=== PATIENT | female | born 1990 | race African-American/Black ===

== ENCOUNTER 2016-05-15 14:37 | Emergency (ER) | payer OTHER ==
[~2016-05-15] VITALS: Ht 144.8 cm; Wt 82.1 kg
[~2016-05-15 14:37] MED LIST: ALBUTEROL SULF8.5 GM IH; BACTRIM,SEPT1 TABLET PO; BENADRYL25 MG PO; BENTYL10 MG PO; CHROMAGEN,1 CAPSULE PO; FLAGYL500 MG PO; FLEXERIL10 MG PO; IBUPROFEN800 MG PO; KEFLEX500 MG PO; LAMICTAL25 MG PO; LATUDA20 MG PO; MACROBID100 MG PO; MACRODANTIN100 MG PO; MIRALAX17 GM PO; MOTRIN600 MG PO; MOTRIN800 MG PO; NAPROSYN500 MG PO; PEPCID20 MG PO; PHENAZOPYRIDIN200 MG PO; PREDNISONE20 MG PO; PRENATAL PLUS1 EAC3 PO; SPRINTEC1 EACH PO; TAMIFLU75 MG PO; ULTRAM50 MG PO; VALTREX1000 MG PO; VENTOLIN HFA18 GM IH; WELLBUTRIN SR150 MG PO; ZANTAC150 MG PO; ZOFRAN ODT4 MG PO; ZOFRAN ODT8 MG PO; ZOFRAN8 MG PO
[2016-05-15 14:46] VITALS: BP 113/62
== END 2016-05-15 15:46 | disposition left against medical advice (07) ==
LOC: EME 14:37
DX: Z00.8 Encounter for other general examination (principal); Z53.21 Procedure and treatment not carried out due to patient leaving prior to being seen by health care provider

== ENCOUNTER 2016-05-30 03:51 | Emergency (ER) | payer OTHER ==
[~2016-05-30] VITALS: Ht 144.8 cm; Wt 98.3 kg
[2016-05-30 04:29] LABS: HEMATOCRIT 33.8 % (36.0-46.0); MCH 28.5 PG (29.0-34.0); MCHC 32.8 G/DL (30.0-36.0); MCV 86.7 FL (83-99); MEAN PLAT.VOLUME 10.5 uM^3 (9.5-12.4); PLATELET COUNT 315 K/uL (156-360); RBC DIS.WIDTH-CV 14.2 % (11.8-14.6); RBC DIS.WIDTH-SD 43.7 % (39-53); WHITE BLOOD COUNT 7.9 K/uL (4.1-10.2)
[2016-05-30 05:15] LABS: CHLORIDE 107 mEq/L (99-109); POTASSIUM 3.1 mEq/L (3.7-5.4); SODIUM 138 mEq/L (136-147)
[2016-05-30 05:16] LABS: GLUCOSE 101 mg/dL (70-99)
[2016-05-30 05:18] LABS: ANION GAP 7 MEQ/L (2-14)
[2016-05-30 05:20] LABS: GFR ESTIMATE (CALCULATED) > 59 mL/min/
[2016-05-30 05:21] LABS: UREA NITROGEN (BUN) 8 mg/dL (9-23)
[2016-05-30] MEDS ORDERED: NAPROSYN500 MG PO (06:21)
[2016-05-30 06:37] VITALS: BP 108/52
== END 2016-05-30 06:37 | disposition home or self-care (01) ==
LOC: EME → EDBD 03:51 → EME 06:37
PROVIDERS: Emergency Medicine
DX: O20.0 Threatened abortion (principal); O99.281 Endocrine, nutritional and metabolic diseases complicating pregnancy, first trimester; E87.6 Hypokalemia; O99.331 Smoking (tobacco) complicating pregnancy, first trimester; Z3A.01 Less than 8 weeks gestation of pregnancy; F17.200 Nicotine dependence, unspecified, uncomplicated; Z95.1 Presence of aortocoronary bypass graft
CPT/HCPCS: 76801; 80048; 81003; 84702; 85027; 86850; 86900; 86901; 99281; 99284

== ENCOUNTER 2016-06-21 23:22 | Emergency (ER) | payer OTHER ==
[~2016-06-21] VITALS: Ht 144.8 cm; Wt 83.9 kg
[2016-06-22 00:20] LABS: HEMATOCRIT 37.9 % (36.0-46.0); MCH 28.9 PG (29.0-34.0); MCHC 33.2 G/DL (30.0-36.0); MCV 86.9 FL (83-99); MEAN PLAT.VOLUME 10.3 uM^3 (9.5-12.4); PLATELET COUNT 322 K/uL (156-360); RBC DIS.WIDTH-CV 14.8 % (11.8-14.6); RBC DIS.WIDTH-SD 46.3 % (39-53); RED BLOOD COUNT 4.36 M/uL (3.80-5.20); WHITE BLOOD COUNT 6.3 K/uL (4.1-10.2)
[2016-06-22 00:21] LABS: INFLUENZA A VIRAL ANTIGEN NEGATIVE; INFLUENZA B VIRAL ANTIGEN NEGATIVE
[2016-06-22 00:31] LABS: CHLORIDE 107 mEq/L (99-109); POTASSIUM 3.6 mEq/L (3.7-5.4); SODIUM 143 mEq/L (136-147)
[2016-06-22 00:34] LABS: GLUCOSE 94 mg/dL (70-99)
[2016-06-22 00:35] LABS: ANION GAP 9 MEQ/L (2-14); TOTAL BILIRUBIN 0.3 mg/dL (0.0-1.0)
[2016-06-22 00:37] LABS: ALKALINE PHOSPHATASE 60 IU/L (3-129); GFR ESTIMATE (CALCULATED) > 59 mL/min/
[2016-06-22 00:38] LABS: UREA NITROGEN (BUN) 10 mg/dL (9-23)
[2016-06-22 00:50] LABS: QUANTITATIVE HCG 894.5 MIU/ML
[2016-06-22 01:23] LABS: HEMATOLOGY COMMENT 1 REV
[2016-06-22 01:24] LABS: BASOPHIL COUNT 0.1 K/uL (0-0.1); EOSINOPHIL (%) 2.1 % (0-5); EOSINOPHIL COUNT 0.1 K/uL (0-0.3); IMMATURE GRANULOCYTE (%) 0.2 % (0.0-0.7); IMMATURE GRANULOCYTE COUNT 0.1 K/uL; LYMPHOCYTE COUNT 2.8 K/uL (1.0-2.8); MONOCYTE (%) 16.9 % (3-12); MONOCYTE COUNT 1.1 K/uL (0-0.8); NEUTROPHIL (%) 34.6 % (45-76); NEUTROPHIL COUNT 2.2 K/uL (1.8-6.4)
[2016-06-22 02:13] LABS: ADD MIUA? YES; BILIRUBIN NEGATIVE; BLOOD LARGE; COLOR YELLOW ((YELLOW)); GLUCOSE (STRIP) NEGATIVE; KETONES 5; LEUKOCYTES NEGATIVE; NITRITE NEGATIVE; PROTEIN (STRIP) 30; SPECIFIC GRAVITY 1.024 (1.000-1.030); UROBILINOGEN 0.2 MG/DL (0.2-1.0)
[2016-06-22 02:28] LABS: BACTERIA RARE /HPF; EPITHELIAL CELLS 1+ /HPF; MUCUS TRACE /LPF; RED BLOOD CELLS TNTC /HPF (0-5); UCUL ADDED? NO; WHITE BLOOD CELLS 0-5 /HPF (0-5)
[2016-06-22 03:00] VITALS: BP 108/54
== END 2016-06-22 03:07 | disposition home or self-care (01) ==
LOC: EME 23:22
PROVIDERS: Emergency Medicine
DX: M79.1 Myalgia (principal); J06.9 Acute upper respiratory infection, unspecified; J45.909 Unspecified asthma, uncomplicated; Z95.1 Presence of aortocoronary bypass graft; F17.200 Nicotine dependence, unspecified, uncomplicated
CPT/HCPCS: 76801; 80053; 81003; 84702; 85025; 87502; 99281; 99284

== ENCOUNTER 2016-07-07 19:40 | Emergency (ER) | payer OTHER ==
[~2016-07-07] VITALS: Ht 147.3 cm; Wt 82.7 kg
[2016-07-07 23:25] VITALS: BP 112/70
== END 2016-07-07 23:26 | disposition home or self-care (01) ==
LOC: EME 19:40
DX: S05.12XA Contusion of eyeball and orbital tissues, left eye, initial encounter (principal); S01.511A Laceration without foreign body of lip, initial encounter; S02.5XXA Fracture of tooth (traumatic), initial encounter for closed fracture; Y04.8XXA Assault by other bodily force, initial encounter; F17.200 Nicotine dependence, unspecified, uncomplicated
CPT/HCPCS: 70450; 70486; 99281; 99283

== ENCOUNTER 2016-07-11 22:46 | Emergency (ER) | payer OTHER ==
[~2016-07-11] VITALS: Ht 144.8 cm; Wt 83.2 kg
[2016-07-12 00:28] LABS: ADD MIUA? YES; BILIRUBIN NEGATIVE; BLOOD LARGE; COLOR YELLOW ((YELLOW)); GLUCOSE (STRIP) NEGATIVE; KETONES NEGATIVE; LEUKOCYTES LARGE; NITRITE NEGATIVE; PROTEIN (STRIP) NEGATIVE; SPECIFIC GRAVITY 1.006 (1.000-1.030); UROBILINOGEN 0.2 MG/DL (0.2-1.0)
[2016-07-12] MEDS ORDERED: TRAMADOL HCL50 MG PO (00:31)
[2016-07-12 00:32] LABS: BACTERIA RARE /HPF; EPITHELIAL CELLS 1+ /HPF; MUCUS TRACE /LPF; UCUL ADDED? YES; UNCLASSIFIED CRYSTALS 2+ /HPF; WHITE BLOOD CELLS TNTC /HPF (0-5)
[2016-07-12 00:33] LABS: INTERNAL CONTROL VALID? YES
[2016-07-12] MEDS ORDERED: MACROBID100 MG PO (02:09)
[2016-07-12 02:18] VITALS: BP 138/71
== END 2016-07-12 02:22 | disposition home or self-care (01) ==
LOC: EME 22:46
PROVIDERS: Emergency Medicine
PROC: 3E0X3BZ Introduction of Anesthetic Agent into Cranial Nerves, Percutaneous Approach (ICD-10-PCS; principal; 2016-07-11)
DX: O99.89 Other specified diseases and conditions complicating pregnancy, childbirth and the puerperium (principal); K08.89 Other specified disorders of teeth and supporting structures; H11.32 Conjunctival hemorrhage, left eye; O9A.211 Injury, poisoning and certain other consequences of external causes complicating pregnancy, first trimester; S02.5XXD Fracture of tooth (traumatic), subsequent encounter for fracture with routine healing; S05.12XD Contusion of eyeball and orbital tissues, left eye, subsequent encounter; S01.511D Laceration without foreign body of lip, subsequent encounter; Y09 Assault by unspecified means; O23.11 Infections of bladder in pregnancy, first trimester; N30.01 Acute cystitis with hematuria; O99.331 Smoking (tobacco) complicating pregnancy, first trimester; F17.200 Nicotine dependence, unspecified, uncomplicated
CPT/HCPCS: 81003; 84702; 84703; 87077; 87086; 87186; 99281; 99284

== ENCOUNTER 2016-11-06 21:54 | Emergency (ER) | payer OTHER ==
[~2016-11-06] VITALS: Ht 144.8 cm; Wt 79.2 kg
[~2016-11-06 21:54] MED LIST changes: +TRAMADOL HCL50 MG PO
[2016-11-06 22:10] VITALS: BP 103/78
[2016-11-06 22:59] LABS: ADD MIUA? YES; BILIRUBIN NEGATIVE; BLOOD SMALL; COLOR YELLOW ((YELLOW)); GLUCOSE (STRIP) NEGATIVE; KETONES NEGATIVE; LEUKOCYTES MODERATE; NITRITE NEGATIVE; PROTEIN (STRIP) 100; SPECIFIC GRAVITY 1.034 (1.000-1.030)
[2016-11-06 23:05] LABS: HEMATOCRIT 36.5 % (36.0-46.0); MCH 29.1 PG (29.0-34.0); MCHC 33.2 G/DL (30.0-36.0); MCV 87.7 FL (83-99); MEAN PLAT.VOLUME 10.4 uM^3 (9.5-12.4); PLATELET COUNT 329 K/uL (156-360); RBC DIS.WIDTH-CV 14.6 % (11.8-14.6); RBC DIS.WIDTH-SD 47.3 % (39-53); RED BLOOD COUNT 4.16 M/uL (3.80-5.20); WHITE BLOOD COUNT 9.7 K/uL (4.1-10.2)
[2016-11-06 23:07] LABS: BACTERIA RARE /HPF; EPITHELIAL CELLS 1+ /HPF; MUCUS TRACE /LPF; UCUL ADDED? YES; WHITE BLOOD CELLS TNTC /HPF (0-5)
[2016-11-06 23:16] LABS: CHLORIDE 105 mEq/L (99-109); POTASSIUM 3.6 mEq/L (3.7-5.4); SODIUM 140 mEq/L (136-147)
[2016-11-06 23:19] LABS: GLUCOSE 94 mg/dL (70-99)
[2016-11-06 23:20] LABS: ANION GAP 11 MEQ/L (2-14)
[2016-11-06 23:21] LABS: TOTAL BILIRUBIN 0.3 mg/dL (0.0-1.0)
[2016-11-06 23:22] LABS: ALKALINE PHOSPHATASE 67 IU/L (3-129); GFR ESTIMATE (CALCULATED) > 59 mL/min/
[2016-11-06 23:23] LABS: UREA NITROGEN (BUN) 21 mg/dL (9-23)
[2016-11-06 23:26] LABS: LIPASE 26 U/L (1.0-51.0)
[2016-11-06 23:33] LABS: QUANTITATIVE HCG < 4.0 MIU/ML
[2016-11-07] MEDS ORDERED: ZOFRAN8 MG PO (00:46)
[2016-11-07] MEDS ORDERED: MACRODANTIN100 MG PO (00:47)
== END 2016-11-07 00:25 | disposition left against medical advice (07) ==
LOC: EME 21:54
DX: N30.01 Acute cystitis with hematuria (principal); R11.2 Nausea with vomiting, unspecified; Z95.1 Presence of aortocoronary bypass graft; F17.200 Nicotine dependence, unspecified, uncomplicated
CPT/HCPCS: 80053; 81003; 83690; 84702; 85027; 87086

== ENCOUNTER 2017-10-14 15:41 | Emergency (ER) | payer OTHER ==
[~2017-10-14] VITALS: Ht 144.8 cm; Wt 95.7 kg
[2017-10-14 17:19] LABS: APPEARANCE SL.HAZY ((CLEAR)); BILIRUBIN NEGATIVE; BLOOD SMALL; COLOR YELLOW ((YELLOW)); GLUCOSE (STRIP) NEGATIVE; KETONES NEGATIVE; LEUKOCYTES NEGATIVE; NITRITE NEGATIVE; PROTEIN (STRIP) NEGATIVE
[2017-10-14 17:24] LABS: BACTERIA RARE /HPF; EPITHELIAL CELLS 1+ /HPF; MUCUS TRACE /LPF; UCUL ADDED? NO; WHITE BLOOD CELLS 0-5 /HPF (0-5)
[2017-10-14 18:18] VITALS: BP 95/66
== END 2017-10-14 18:27 | disposition home or self-care (01) ==
LOC: EME 15:41
PROVIDERS: Emergency Medicine
DX: S86.891A Other injury of other muscle(s) and tendon(s) at lower leg level, right leg, initial encounter (principal); S86.892A Other injury of other muscle(s) and tendon(s) at lower leg level, left leg, initial encounter; X58.XXXA Exposure to other specified factors, initial encounter; R30.0 Dysuria; R11.10 Vomiting, unspecified; N89.8 Other specified noninflammatory disorders of vagina; F17.200 Nicotine dependence, unspecified, uncomplicated
CPT/HCPCS: 81003; 81025; 99281; 99284

== ENCOUNTER 2017-10-27 12:10 | Inpatient (IN) | payer OTHER ==
[~2017-10-27] VITALS: Ht 144.8 cm; Wt 90.1 kg
[2017-10-27 13:49] LABS: HEMATOCRIT 33.5 % (36.0-46.0); HEMOGLOBIN 11.2 G/DL (11.9-15.5); MCH 29.1 PG (29.0-34.0); MCHC 33.4 G/DL (30.0-36.0); PLATELET COUNT 233 K/uL (156-360); RBC DIS.WIDTH-CV 14.6 % (11.8-14.6); RBC DIS.WIDTH-SD 46.7 % (39-53); RED BLOOD COUNT 3.85 M/uL (3.80-5.20); WHITE BLOOD COUNT 5.3 K/uL (4.1-10.2)
[2017-10-27 13:58] LABS: BILIRUBIN NEGATIVE; BLOOD NEGATIVE; COLOR YELLOW ((YELLOW)); GLUCOSE (STRIP) NEGATIVE; KETONES NEGATIVE; LEUKOCYTES NEGATIVE; NITRITE NEGATIVE; PROTEIN (STRIP) NEGATIVE; SPECIFIC GRAVITY 1.009 (1.000-1.030); UROBILINOGEN 0.2 MG/DL (0.2-1.0)
[2017-10-27 13:59] LABS: APPEARANCE CLEAR ((CLEAR)); UCUL ADDED? NO
[2017-10-27 14:06] LABS: AMPHETAMINE NEGATIVE (500 ng/mL); BARBITURATES NEGATIVE (200 ng/mL); BENZODIAZEPINES NEGATIVE (150 ng/mL); BUPRENORPHINE NEGATIVE (10 ng/mL); COCAINE NEGATIVE (150 ng/mL); METHADONE NEGATIVE (200 ng/mL); METHAMPHETAMINE NEGATIVE (500 ng/mL); OPIATES (MORPHINE) NEGATIVE (100 ng/mL); OXYCODONE NEGATIVE (100 ng/mL); PHENCYCLIDINE NEGATIVE (25 ng/mL); PROPOXYPHENE NEGATIVE (300 ng/mL); THC CANNABINOIDS NEGATIVE (50 ng/mL); TRICYCLIC ANTIDEPRESSANTS NEGATIVE (300 ng/mL)
[2017-10-27 14:51] LABS: BASOPHIL (%) 0.6 % (0-1); EOSINOPHIL (%) 1.7 % (0-5); EOSINOPHIL COUNT 0.1 K/uL (0-0.3); IMMATURE GRANULOCYTE (%) 0.4 % (0.0-0.7); LYMPHOCYTE (%) 47.4 % (15-42); LYMPHOCYTE COUNT 2.5 K/uL (1.0-2.8); MONOCYTE (%) 8.6 % (3-12); MONOCYTE COUNT 0.5 K/uL (0-0.8); NEUTROPHIL (%) 41.3 % (45-76); NEUTROPHIL COUNT 2.2 K/uL (1.8-6.4)
[2017-10-27 14:57] LABS: QUANTITATIVE HCG < 4.0 MIU/ML
[2017-10-27 15:30] LABS: ACETAMINOPHEN (TYLENOL) < 10 MCG/ML (10-30); ALBUMIN 3.7 G/DL (3.2-4.8); ALKALINE PHOSPHATASE 58 IU/L (3-129); ALT (GPT) 9 IU/L (3-49); AST (GOT) 16 IU/L (2-34); CHLORIDE 104 MEQ/L (99-109); CREATININE 0.9 MG/DL (0.6-1.3); GFR ESTIMATE (CALCULATED) > 59 mL/min/; GLUCOSE 90 mg/dL (70-99); POTASSIUM 3.5 MEQ/L (3.7-5.4); SALICYLATE < 1.0 MG/DL (15-30); SERUM ETHYL ALCOHOL < 10 mg/dL; SODIUM 139 MEQ/L (136-147); TOTAL BILIRUBIN 0.3 MG/DL (0.0-1.0); TOTAL PROTEIN 6.3 G/DL (6.4-8.3); UREA NITROGEN (BUN) 4 mg/dL (9-23)
[2017-10-27] MEDS ORDERED: PRENATAL TABLE1 EAC3 PO (16:16)
[2017-10-27] MEDS ORDERED: ADVIL200 MG PO (16:17)
[2017-10-27 18:26] VITALS: BP 105/61
[2017-10-28 07:58] VITALS: BP 89/56
[2017-10-28 16:10] VITALS: BP 113/53
[2017-10-29 08:05] VITALS: BP 110/56
== END 2017-10-29 10:32 | disposition home or self-care (01) | DRG 882 ==
LOC: EME 12:10 → EDOF 14:25 → 1WEST 14:25 → ENRESERV 18:12 → 1WEST 18:12
PROVIDERS: Emergency Medicine
DX: F43.20 Adjustment disorder, unspecified (principal); R45.851 Suicidal ideations; F81.9 Developmental disorder of scholastic skills, unspecified; F17.200 Nicotine dependence, unspecified, uncomplicated
CPT/HCPCS: 80053; 81003; 84702; 85025; 90839; 99281; 99285; G0480

== ENCOUNTER 2017-11-15 16:00 | Emergency (ER) | payer OTHER ==
[~2017-11-15] VITALS: Ht 146.1 cm; Wt 88.6 kg
[~2017-11-15 16:00] MED LIST changes: +ADVIL200 MG PO; +PRENATAL TABLE1 EAC3 PO
[2017-11-15] MEDS ORDERED: ZITHROMAX250 MG PO (17:38)
[2017-11-15] MEDS ORDERED: VENTOLIN HFA18 GM IH (17:38)
[2017-11-15 18:01] VITALS: BP 124/89
== END 2017-11-15 18:02 | disposition home or self-care (01) ==
LOC: EME 16:00
DX: J40 Bronchitis, not specified as acute or chronic (principal); J32.9 Chronic sinusitis, unspecified; J02.9 Acute pharyngitis, unspecified; F17.200 Nicotine dependence, unspecified, uncomplicated
CPT/HCPCS: 71046; 94640; 99281; 99284

== ENCOUNTER 2017-12-01 00:29 | Emergency (ER) | payer OTHER ==
[~2017-12-01] VITALS: Ht 144.8 cm; Wt 89.3 kg
[~2017-12-01 00:29] MED LIST changes: +ZITHROMAX250 MG PO
[2017-12-01 02:02] LABS: APPEARANCE CLEAR ((CLEAR)); BILIRUBIN NEGATIVE; BLOOD SMALL; COLOR YELLOW ((YELLOW)); GLUCOSE (STRIP) NEGATIVE; KETONES NEGATIVE; LEUKOCYTES TRACE; NITRITE NEGATIVE; PROTEIN (STRIP) NEGATIVE; SPECIFIC GRAVITY 1.014 (1.000-1.030); UROBILINOGEN 0.2 MG/DL (0.2-1.0)
[2017-12-01 02:16] LABS: BACTERIA NONE SEEN /HPF; EPITHELIAL CELLS 2+ /HPF; MUCUS TRACE /LPF; RED BLOOD CELLS 0-5 /HPF (0-5); UCUL ADDED? YES
[2017-12-01] MEDS ORDERED: KEFLEX500 MG PO (03:35)
[2017-12-01 04:03] VITALS: BP 114/72
== END 2017-12-01 04:07 | disposition home or self-care (01) ==
LOC: EME 00:29
PROVIDERS: Emergency Medicine
DX: R51 Headache (principal); N30.91 Cystitis, unspecified with hematuria; F17.200 Nicotine dependence, unspecified, uncomplicated
CPT/HCPCS: 81003; 81025; 87077; 87086; 87186; 99281; 99284

== ENCOUNTER 2017-12-14 15:58 | Emergency (ER) | payer OTHER ==
[~2017-12-14] VITALS: Ht 144.8 cm; Wt 85.8 kg
[2017-12-14 16:52] LABS: HEMATOCRIT 35.5 % (36.0-46.0); HEMOGLOBIN 11.8 G/DL (11.9-15.5); MCH 27.7 PG (29.0-34.0); MCHC 33.2 G/DL (30.0-36.0); MCV 83.3 FL (83-99); PLATELET COUNT 350 K/uL (156-360); RBC DIS.WIDTH-CV 15.5 % (11.8-14.6); RED BLOOD COUNT 4.26 M/uL (3.80-5.20); WHITE BLOOD COUNT 6.7 K/uL (4.1-10.2)
[2017-12-14 17:03] LABS: ALBUMIN 4.1 g/dL (3.2-4.8); CHLORIDE 106 mEq/L (99-109); POTASSIUM 3.7 mEq/L (3.7-5.4); SODIUM 141 mEq/L (136-147)
[2017-12-14 17:06] LABS: GLUCOSE 101 mg/dL (70-99); TOTAL PROTEIN 6.9 g/dL (6.4-8.3)
[2017-12-14 17:08] LABS: TOTAL BILIRUBIN 0.4 mg/dL (0.0-1.0)
[2017-12-14 17:09] LABS: ALKALINE PHOSPHATASE 63 IU/L (3-129); CREATININE 0.9 mg/dL (0.6-1.3); GFR ESTIMATE (CALCULATED) > 59 mL/min/
[2017-12-14 17:10] LABS: UREA NITROGEN (BUN) 6 mg/dL (9-23)
[2017-12-14 17:11] LABS: AST (GOT) 17 IU/L (2-34)
[2017-12-14 17:12] LABS: ALT (GPT) 11 IU/L (3-49)
[2017-12-14 17:18] LABS: APPEARANCE SL.HAZY ((CLEAR)); BILIRUBIN NEGATIVE; BLOOD SMALL; COLOR YELLOW ((YELLOW)); GLUCOSE (STRIP) NEGATIVE; KETONES NEGATIVE; LEUKOCYTES SMALL; NITRITE NEGATIVE; PROTEIN (STRIP) 100; SPECIFIC GRAVITY 1.027 (1.000-1.030)
[2017-12-14 17:18] LABS: QUANTITATIVE HCG < 4.0 MIU/ML
[2017-12-14 17:24] LABS: BACTERIA RARE /HPF; EPITHELIAL CELLS 2+ /HPF; MUCUS 1+ /LPF; UCUL ADDED? YES; WHITE BLOOD CELLS 20-30 /HPF (0-5)
[2017-12-14] MEDS ORDERED: KEFLEX500 MG PO (18:31)
[2017-12-14] MEDS ORDERED: FLAGYL500 MG PO (18:31)
[2017-12-14 19:02] VITALS: BP 106/71
[2017-12-14 22:07] LABS: CANDIDA DNA PROBE NEGATIVE; GARDNERELLA DNA PROBE NEGATIVE; TRICHOMONAS DNA PROBE NEGATIVE
== END 2017-12-14 19:12 | disposition home or self-care (01) ==
LOC: EME 15:58
PROVIDERS: Nurse Practitioner Family
DX: R10.9 Unspecified abdominal pain (principal); R35.0 Frequency of micturition; F32.9 Major depressive disorder, single episode, unspecified; F41.9 Anxiety disorder, unspecified; F31.9 Bipolar disorder, unspecified; F17.200 Nicotine dependence, unspecified, uncomplicated; Z88.1 Allergy status to other antibiotic agents
CPT/HCPCS: 74019; 80053; 81003; 84702; 85027; 87086; 87480; 87510; 87660; 99281; 99284